=== PATIENT | female | born 1985 | race Caucasian/White ===

== ENCOUNTER 2016-06-15 07:53 | Emergency (ER) | payer MEDICAID, OTHER ==
[2016-06-15 08:22] VITALS: BP 116/71
--- NOTE | 2016-06-15 08:59 | ERNOTE ---
Date of Service: 06/15/16 Time Seen by Provider: 06/15/16 08:34 Stated Complaint: URI Presenting Symptoms:: cough Source: patient Exam Limitations: no limitations Immunizations: IMMUNIZATION HX History of Influenza Vaccine Yes Allergies/Adverse Reactions: Allergies Penicillins Allergy (Verified 06/15/16 08:22) Home Medications: HOME MEDICATIONS HYDROcodone/ACETAMINOPHEN [[place] 5-325] 1 - 2 tab PO QID PRN #30 tab 06/15/16 [ Last Taken Unknown] - History of Present Ilness Narrative: Almost a week ago developed a cough. It has gotten worse. Coughs so hard she throws up. Green phlegm. Asthma with last . 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 Anorexia for 1-2 days. Hoarse throat. Sweats and chills for two days, and now her kids have similar illnesses. Didn't take her temperature at home. Timing: getting worse Severity: moderate Frequency/Possible Cause: Reports: no prior episodes Modifying Factors - Improves: Reports: nothing Modifying Factors - Worsens: Reports: activity, coughing Associated Symptoms: Reports: cough, nasal congestion, nasal drainage, sore throat, muscle aches Prior Treatment: Denies: recently seen, currently on antibiotics Review of Systems - Review of Systems Constitutional: Present: chills, diaphoresis, malaise EYE: Present: no symptoms reported ENT: Present: nose congestion, nasal drainage Respiratory: Present: cough Cardiology: Present: no symptoms reported Gastrointestinal/Abdominal: Present: vomiting - because she coughs so hard. Genitourinary: Present: no symptoms reported Musculoskeletal: Present: muscle pain Skin: Present: no symptoms reported Neurological: Present: no symptoms reported Endocrine: Present: no symptoms reported Hematologic/Lymphatic: Present: no symptoms reported Psych: Present: no symptoms reported All Other Systems: All systems neg except as marked - Patient's Past Medical History Patient History - Medical: Kidney stone Patient History - Cardiac/Respiratory: No pertinent hx Patient History - Cancer: No Hx of Cancer Patient History - Surgical Procedures: Appendectomy, , T & A, Urology - lithotripsy Patient History - Other: None - Social History Living Situations: home Psych History: No pertinent hx Smoking Status: Never smoker Alcohol Use: none Drug Use: none - Immunizations History of Influenza Vaccine: Yes Physical Exam - Physical Exam General Appearance: Present: wd/wn, alert, no apparent distress Eye Exam: Normal inspection: bilateral, PERRL: bilateral, EOMI: bilateral Ears, Nose, Throat: Present: normal ENT inspection, nasal congestion, pharyngeal erythema, other - hoarse. Absent: abnormal TM (R), abnormal TM (L) Neck: Present: normal inspection, lymphadenopathy (R) Respiratory: Present: no respiratory distress, normal breath sounds Cardiovascular/Chest: Present: regular rate, rhythm, no murmur Gastrointestinal/Abdominal: Present: normal bowel sounds, nontender, nondistended, soft, no organomegaly Back Exam: Present: normal inspection Extremity Exam: Present: normal inspection, no edema Neurological Exam: Present: alert, oriented, normal mood/affect Skin Exam: Present: normal color, warm/dry ED Progress - Vital Signs Patient's Vital Signs:: I have reviewed the patient's vital signs. Vital Signs: Vital Signs 06/15/16 08:17 Temperature 36.0 C L Pulse Rate 87 Respiratory 12 Rate Blood Pressure 116/71 O2 Sat by Pulse 98 Oximetry - Progress/Reassessment Chief Complaint: Cough Departure - Departure Clinical Impression: Viral respiratory illness Disposition: Home self-care Condition: Good Instructions: Viral Respiratory Infection, [id number] Additional Instructions: Followup with your doctor end of the week. Nasal saline often. Rest. Lots of fluids. 1 tsp of lemon juice, 1 tblps of honey in hot tea taken hourly as able. Prescriptions: HYDROcodone/ACETAMINOPHEN [[place] 5-325] 1 - 2 tab PO QID PRN #30 tab PRN Reason: Cough
== END 2016-06-15 09:11 | disposition home or self-care (01) ==
LOC: ER 07:53
DX: J06.9 Acute upper respiratory infection, unspecified (principal)

== ENCOUNTER 2016-12-07 22:18 | Emergency (ER) | payer MEDICAID, OTHER ==
--- NOTE | 2016-12-07 22:55 | ERNOTE ---
Dyspnea - General Presenting Symptoms: shortness of breath, difficulty of breathing Time Seen by Provider: 12/07/16 22:26 Source: patient, family, RN notes reviewed Exam Limitations: no limitations - Immun/Allergies/Home Medications Immunizations: IMMUNIZATION HX History of Influenza Vaccine Yes Allergies/Adverse Reactions: Allergies Penicillins Allergy (Verified 06/15/16 08:22) Home Medications: HOME MEDICATIONS HYDROcodone/ACETAMINOPHEN [[place] 5-325] 1 - 2 tab PO QID PRN #30 tab 06/15/16 [ Last Taken Unknown] Famotidine [Pepcid] 20 mg PO BID #60 tablet 12/08/16 [Last Taken Unknown] - History of Present Illness Narrative: Patient and spouse were in the middle of intercourse when she had a sudden onset of epigastric pain. She had eaten [place] food earlier in the day. She became quite alarmed at the pain, and started to hyperventilate. She felt unable to catch her breath, so her spouse brought her in here. She was quite panicked on arrival. The patient's spouse reports that they have been under a lot of stress lately, they are going to move to [place], [place], and things have not gone as well as they would have liked. Severity: severe Treatment TRANSITION MGR: none Initiating event: Reports: emotionally upset Frequency of episodes: Reports: occassional episodes - has had panic attacks in the past, none for a long time Modifying Factors - (Improves): Reports: activity Modifying Factors (Worsens): Reports: lying down, rest Associated Symptoms-Dyspnea: Reports: palpitations, lightheadedness, anxiety Review of Systems - Review of Systems Constitutional: Absent: recent illness, fever, chills EYE: Present: no symptoms reported ENT: Absent: sore throat Respiratory: Present: shortness of breath Cardiology: Present: palpitations. Absent: chest pain, syncope Gastrointestinal/Abdominal: Present: abdominal pain Genitourinary: Present: no symptoms reported Musculoskeletal: Absent: back pain, muscle pain, muscle stiffness Skin: Present: no symptoms reported Neurological: Present: anxiety - Patient's Past Medical History Patient History - Medical: Anxiety, Kidney stone Patient History - Cardiac/Respiratory: No pertinent hx Patient History - Cancer: No Hx of Cancer Patient History - Surgical Procedures: Appendectomy, , T & A, Urology Patient History - Other: None - Social History Living Situations: home Psych History: Hx of Anxiety Smoking Status: Never smoker Alcohol Use: none Drug Use: none - Immunizations History of Influenza Vaccine: Yes Physical Exam - Physical Exam General Appearance: Present: moderate distress Head Exam: Present: normal inspection, no evidence of injury Eye Exam: Normal inspection: bilateral, PERRL: bilateral, EOMI: bilateral Ears, Nose, Throat: Present: normal ENT inspection Neck: Present: normal inspection, nontender, supple, full range of motion Respiratory: Present: normal breath sounds, respiratory distress, accessory muscle use Cardiovascular/Chest: Present: regular rate, rhythm, no murmur Gastrointestinal/Abdominal: Present: normal bowel sounds, tenderness - epigastric, McBurney sign Back Exam: Present: normal inspection, normal range of motion Extremity Exam: Present: normal inspection, normal range of motion, no edema Neurological Exam: Present: alert, oriented, no motor/sensory deficits, other - anxious Skin Exam: Present: normal color, warm/dry ED Progress - Results and Orders Patient's Lab Results:: I have reviewed the patient's lab results. - Vital Signs Patient's Vital Signs:: I have reviewed the patient's vital signs. Vital Signs: Vital Signs 12/07/16 12/07/16 12/07/16 22:21 22:33 22:51 Temperature 36.6 C Pulse Rate 115 H 73 77 Respiratory 40 H 15 15 Rate Blood Pressure 129/94 122/88 111/81 O2 Sat by Pulse 100 99 97 Oximetry - Progress/Reassessment Chief Complaint: Dyspnea Progress:: Improved Progress Note-Subjective: 12/08/16 00:56 Patient doing better. She drank a GI Cocktail with improvement of her pain. She has been under a lot of stress lately, difficult to ascertain for sure if the pain is a stressed out stomach or a gallbladder reaction to a high fat meal. Will treat for the stomach, a diet plan for the gallbladder and follow up with one of the local surgeons. Plan - Plan Plan: Discharge home with diet plan, anti acid stomach medication and referral to a local surgeon. Departure Clinical Impression: Gallbladder attack, Stomach burning - Departure Disposition: Home self-care Condition: Good Instructions: Peptic Ulcer, [id number], Cholelithiasis, [id number], Flank Pain, [id number], Low-Fat Diet for Pancreatitis or Gallbladder Conditions Referrals: Gio Miranda MD [Associate] - (5-7 days) Prescriptions: Famotidine [Pepcid] 20 mg PO BID #60 tablet
[2016-12-07] MEDS ORDERED: LIDOCAINE HCL 20 ML UDC PO ONE (23:07)
[2016-12-07] MEDS ORDERED: SUCRALFATE 1 G/10 ML UDC PO ONE (23:07)
[2016-12-07] MEDS ORDERED: MAG HYDROX/ALUMINUM HYD/SIMETH 30 ML UDC PO ONE (23:07)
[2016-12-07 23:21] LABS: Hematocrit 34.1 % (37.0-47.0); Hemoglobin 11.5 gm/dL (12.5-16.0); Mean Corpuscular Hemoglobin 29.3 pg (27-31); Mean Corpuscular Hgb Conc 33.7 g/dl (32-36); Mean Platelet Volume 11.1 fl (6.0-9.5); Neutrophil # 5.9 K/mm3 (1.3-6.0); Neutrophil % 62.2 % (42-75.0); Platelet Count 238 K/mm3 (150-450); Red Blood Count 3.92 M/mm3 (4.2-5.4); Red Cell Distribution Width 12.4 % (11.5-14.0); White Blood Count 9.5 K/mm3 (4.0-10.5)
[2016-12-07 23:34] LABS: Urine Bilirubin Negative (NEGATIVE); Urine Blood Negative /ul (NEGATIVE); Urine Ketone Negative (NEGATIVE); Urine Nitrite Negative (NEGATIVE); Urine Protein Negative (NEGATIVE); Urine Specific Gravity <=1.005 SP.GR. (1.005-1.010); Urine Urobilinogen Normal (NORMAL)
[2016-12-07 23:35] LABS: Albumin * 3.7 gm/dl (3.4-5.0); Anion Gap 13.8 mmol/L (6.8-13.8); BUN/Creatinine Ratio 10.2 (9.0-21.6); Bilirubin, Total 0.3 mg/dL (0.0-1.1); Ca. Corrected For Albumin 8.6 mg/dL (8.4-10.2); Calcium * 8.7 mg/dL (7.9-10.9); Carbon Dioxide 25.7 mmol/L (24-32.6); Potassium 3.5 mmol/L (3.4-4.6); Total Protein 6.8 gm/dL (6.2-8.2)
[2016-12-07 23:44] LABS: Urine Appearance Clear; Urine Bacteria TRACE; Urine Color Pale Yellow; Urine RBC None Seen /hpf (0-5); Urine WBC None Seen /hpf (0-5)
[2016-12-08 00:54] VITALS: BP 127/83
[2016-12-08] MEDS ORDERED: FAMOTIDINE 20 MG TABLET PO ONE (01:01)
[2016-12-08] MEDS ORDERED: FAMOTIDINE 20 MG TABLET ONE (01:03)
== END 2016-12-08 01:08 | disposition home or self-care (01) ==
LOC: ER 22:18
DX: K81.0 Acute cholecystitis (principal); R10.9 Unspecified abdominal pain